=== PATIENT | female | born 1995 | race African-American/Black ===

== ENCOUNTER 2016-11-08 10:27 | Emergency (ER) | payer MEDICAID, OTHER ==
[~2016-11-08] VITALS: Ht 152.4 cm; Wt 77.2 kg
[~2016-11-08 10:27] MED LIST: Z.0.NO CURRENT MEDS
[2016-11-08 10:32] VITALS: BP 109/61; PULSE 91; RESP 16; TEMP 97.9; O2SAT 97
--- NOTE | 2016-11-08 10:57 | PD ---
HPI Chief Complaint: Pain: Acute or Chronic Time Seen by Provider: 10:34 Travel History International Travel<30 days: No Contact w/Intl Traveler<30days: No Traveled to known affect area: No History of Present Illness HPI 20-year-old female complains of headache, bilateral breast pain. Patient states that the symptoms started about week and a half ago. Patient states that headache is aching headache diffuse over the head. Patient denies any visual change. Patient denies any neck pain. Patient denies any chest pain or shortness of breath. Patient states that she had intermittent sharp pain localized to both breasts. Patient states that she has occasionally nipple discharge. Patient denies any pain radiation. Patient denies abdominal pain. Patient denies any focal weakness and numbness of extremity. Patient states that she did a home brain CT as at home was negative recently. Patient states that her last menstruation period was September 09, 2016. Patient has history of irregular Menstruation period in the past. Patient denies any history of breast cancer in the family. PFSH Past Medical History ADHD: Yes (ADHD) Asthma: Yes Autoimmune Disease: No Blood Disorders: No Weight (Kg): 2 lbs Anxiety: No Depression: No Cancer: No Cardiovascular Problems: Yes (Started complaining about chest pains, gastric reflux, nexium) Cystic Fibrosis: No Diabetes: No Diminished Hearing: No Gastrointestinal Disorders: Yes Genitourinary: No Headaches: Yes Musculoskeletal: No Neurologic: No Psychiatric: Yes (ADD and ADHD, Bipolar in a child) Respiratory: Yes (ASTHMA) Immunizations Current: Yes Migraines: No Seizures: No Sickle Cell Disease: No Sleep Apnea: No Thyroid Disease: No Ulcer: No ?: Unknown Past Surgical History Appendectomy: No Section: No Cholecystectomy: No Social History Alcohol Use: No Tobacco Use: No Substance Use: No Allergies-Medications (Allergen,Severity, Reaction): Coded Allergies: amoxicillin (Unverified Allergy, Severe, Rash, 11/08/16) lamotrigine (Unverified Allergy, Severe, RASH FEVER, 11/08/16) Reported Meds & Prescriptions Reported Meds & Active Scripts Active Fioricet (Ifrnowpizl-Foneftwzfzliy-Icydwabt) 50-300-40 Mg Cap 1-2 Cap PO Q6H PRN Mobic (Meloxicam) 15 Mg Tab 15 Mg PO DAILY Review of Systems General / Constitutional: No: Fever Eyes: No: Visual changes HENT: Positive: Headaches Cardiovascular: No: Chest Pain or Discomfort Respiratory: No: Shortness of Breath Gastrointestinal: No: Abdominal Pain Genitourinary: No: Dysuria Musculoskeletal: No: Pain Skin: No Rash Neurologic: No: Weakness Psychiatric: No: Depression Endocrine: No: Polydipsia Hematologic/Lymphatic: No: Easy Bruising Physical Exam Narrative GENERAL: Well-nourished, well-developed patient. SKIN: Focused skin assessment warm/dry. HEAD: Normocephalic. EYES: No scleral icterus. No injection or drainage. Pupils 3 mm equal reactive. NECK: Supple, trachea midline. No JVD or lymphadenopathy. No meningismus CARDIOVASCULAR: Regular rate and rhythm without murmurs, gallops, or rubs. RESPIRATORY: Breath sounds equal bilaterally. No accessory muscle use. GASTROINTESTINAL: Abdomen soft, non-tender, nondistended. MUSCULOSKELETAL: No cyanosis, or edema. BACK: Nontender without obvious deformity. No CVA tenderness. Examination of the breast show bilateral of diffuse fibrocystic structure. No dominant mass. No redness swelling dimpling of the breast. No nipple discharge noted. No axillary lymphadenopathy. Neurologic exam normal. Data Data Last Documented VS Vital Signs Date Time Temp Pulse Resp B/P Pulse Ox O2 Delivery O2 Flow Rate FiO2 11/08/16 10:32 97.9 91 16 109/[address] Brain W/O Iv Contrast(Rout) (11/08/16 10:42) Ed Urine Pregnancytest Poc (11/08/16 10:42) MDM Medical Decision Making Medical Screen Exam Complete: Yes Emergency Medical Condition: Yes Interpretation(s) Last Impressions Head CT 11/08/16 1042 Signed Impressions: Service Date/Time: Tuesday, November 08, 2016 10:59 - CONCLUSION: Negative noncontrast CT. Jama Ramos MD Differential Diagnosis Differential diagnosis including migraine headache, tension headache, cluster headache, fibrocystic disease of the breast, mastitis, cellulitis, breast mass. Narrative Course 20-year-old female with headache and bilateral breast pain. Diagnosis Primary Impression: Cephalgia Qualified Code: R51 - Acute nonintractable headache, unspecified headache type Additional Impression: Mastalgia Patient Instructions: General Instructions Additional Instructions: Take medication as needed. Follow-up with supervisor [employer] for breast pain and amenorrhea. Return if worse. Follow up with neurologist for headache. Med/Other Pt SpecificInfo: Prescription(s) given Scripts Nqzuiccupp-Ucadijnrjhbtn-Sspfdylj (Fioricet)50-300-40 Mg Cap1-2 Cap PO Q6H PRN ( HEADACHE) #20 CAP Ref 0 Prov:Humza Cox MD 11/08/16 Meloxicam (Mobic)15 Mg Tab15 Mg PO DAILY #30 TAB Prov:Humza Cox MD 11/08/16 Disposition: 01 DISCHARGE HOME Condition: Stable Humza Cox MD Nov 08, 2016 10:57
--- NOTE | 2016-11-08 11:09 | RADRPT ---
EXAM DATE/TIME: 11/08/2016 10:59 [facility] COMPARISON: No previous studies available for comparison. INDICATIONS : Cephalgia x 10 days. RADIATION DOSE: 59.68 CTDIvol (mGy) MEDICAL HISTORY : None SURGICAL HISTORY : None. ENCOUNTER: Initial ACUITY: 1 week PAIN SCALE: 7/10 LOCATION: cranial TECHNIQUE: Multiple contiguous axial images were obtained of the head. Using automated exposure control and adj ustment of the mA and/or kV according to patient size, radiation dose was kept as low as reasonably a chievable to obtain optimal diagnostic quality images. DICOM format image data is available electro nically for review and comparison. FINDINGS: CEREBRUM: The ventricles are normal for age. No evidence of midline shift, mass lesion, hemorrhage or acute in farction. No extra-axial fluid collections are seen. POSTERIOR FOSSA: The cerebellum and brainstem are intact. The 4th ventricle is midline. The cerebellopontine angle i s unremarkable. EXTRACRANIAL: The visualized portion of the orbits is intact. SKULL: The calvaria is intact. No evidence of skull fracture. CONCLUSION: Negative noncontrast CT. Jama Ramos MD on November 08, 2016 at 11:06 Board Certified Radiologist. This report was verified electronically.
[2016-11-08] MEDS ORDERED: MOBI15TA PO (11:28)
[2016-11-08] MEDS ORDERED: BUTA1CAP PO (11:28)
== END 2016-11-08 12:06 | disposition home or self-care (01) ==
LOC: PHED 10:27
DX: R51 Headache (principal); N64.4 Mastodynia; Z86.59 Personal history of other mental and behavioral disorders; Z87.09 Personal history of other diseases of the respiratory system; Z86.79 Personal history of other diseases of the circulatory system; Z87.19 Personal history of other diseases of the digestive system
CPT/HCPCS: 70450; 84703; 99284